=== PATIENT | female | born 1990 | race Two or more races ===

== ENCOUNTER 2024-03-29 11:10 | Emergency (ER) | payer OTHER ==
[2024-03-29 11:20] VITALS: BP 124/68; PULSE 86; RESP 20; TEMP 97.6; BMI 30.2
== END 2024-03-29 18:33 | disposition home or self-care (01) ==
LOC: JERFT 11:10
DX: O00.201 Right ovarian pregnancy without intrauterine pregnancy (principal)
CPT/HCPCS: 36415; 76817-TC; 84702; 99284-25

== ENCOUNTER 2024-04-04 06:47 | Emergency (ER) | payer OTHER ==
[2024-04-04 06:52] VITALS: BP 118/57; PULSE 70; RESP 18; TEMP 97.7; BMI 30.2
== END 2024-04-04 10:13 | disposition home or self-care (01) ==
LOC: JER 06:47
DX: O00.201 Right ovarian pregnancy without intrauterine pregnancy (principal)
CPT/HCPCS: 36415; 84702; 99283-25